=== PATIENT | male | born 1980 | race Caucasian/White ===

== ENCOUNTER 2016-07-05 19:45 | Emergency (ER) | payer OTHER ==
[~2016-07-05] VITALS: Ht 180.3 cm; Wt 136.1 kg
--- NOTE | ~2016-07-05 | EKG ---
[place], [place] ELECTROCARDIOGRAM REPORT NAME: RAQUEL REDD UNIT #: [id number] ROOM: DOCTOR: BASIL WEBER MD BIRTHDATE: [birth year] DOS: 07/05/2016 TIME: 2027. Normal sinus rhythm at 90 beats per minute. The tracing is normal. No previous tracing is available for comparison. BASIL WEBER MD CM:EKGRPT:ELECTROCARDIOGRAM REPORT 1232 1519 BASIL WEBER MD
[~2016-07-05 19:45] MED LIST: ANAPROX DS550 MG PO; ANUSOL-HC25 MG R; ASPIRIN81 M1; ATIVAN0.5 MG PO; BENADRYL25 M2 PO; CLEOCIN150 MG PO; CYCLOBENZAPRINE10 MG PO; DARVOCET N 1001 TAB PO; FLEXERIL10 MG PO; HYDROCODONE BIT1 T11 PO; IBU-8800 MG PO; LEVOFLOXACIN500 MG PO; Motrin,Rufen800 MG PO; NAPROSYN500 MG PO; NAPROXEN220 MG PO; NAPROXEN500 MG PO; NEURONTIN300 MG PO; Orphenadrine C100 MG PO; PERCOCET 325 MG1 TA2 PO; PREDNICOT20 MG PO; PREDNISONE10 MG PO; PREDNISONE20 M1 PO; PREVACID15 M1 PO; PRILOSEC20 M2 PO; QSYMIA 15 MG-91 EACH PO; ROBITUSSIN DM 105 ML PO; SUPHEDRINE PE PO; TRAMADOL HCL50 MG PO; VENTOLIN H0.09 MG/AC INH; VICODIN 5/500 505 MG PO; VICODIN ES 7501 TAB PO; ZANTAC 150150 MG PO; [UNRECOGNIZED DRUG - OTHER] PO
[2016-07-05 20:34] LABS: BASO % 0.5 % (0.0-1.0); EOS # 0.2 10*3/uL (0.0-0.4); EOS % 2.9 % (1.0-4.0); HEMATOCRIT 43.4 % (42.0-52.0); HEMOGLOBIN 14.6 g/dl (14.0-18.0); LYMPH % 14.2 % (27.0-41.0); MEAN CELL VOLUME 83.9 fl (80.0-94.0); MEAN CORPUSCULAR HGB 28.2 pg (27.0-31.0); MEAN CORPUSCULAR HGB CONC 33.6 g/dl (33.0-37.0); MEAN PLATELET VOLUME 10.4 fl (9.6-12.3); MONO # 0.6 10*3/uL (0.1-1.0); MONO % 8.5 % (3.0-9.0); NEUT # 5.4 10*3/uL (2.3-7.9); NEUT % 73.5 % (47.0-73.0); PLATELET COUNT AUTOMATED 280 10*3/uL (130-400); RED BLOOD COUNT 5.17 10*6/uL (4.50-5.90); RED CELL DISTRI WIDTH 13.4 % (0-14.5); WHITE BLOOD COUNT 7.3 10*3/uL (4.8-10.8)
[2016-07-05 20:50] LABS: ALBUMIN 3.6 gm/dl (3.1-4.5); ALKALINE PHOSPHATASE 80 U/L (45-117); BILIRUBIN, TOTAL 0.3 mg/dl (0.2-1.0); BUN 17 mg/dl (7-24); CARBON DIOXIDE 26 mmol/L (21-32); CHLORIDE 107 mmol/L (98-107); CPK 117 U/L (39-308); EST GLOM FILT AFRICAN AMERICAN > 60 ml/min; GLUCOSE 134 mg/dL (65-99); LDH 221 U/L (87-241); MAGNESIUM 2.2 mg/dL (1.5-2.1); POTASSIUM 3.7 mmol/L (3.5-5.1); SGOT/AST 30 IU/L (3-35); SGPT/ALT 39 U/L (12-78); SODIUM 146 mmol/L (136-145); TOTAL PROTEIN 6.5 gm/dL (6.4-8.2)
[2016-07-05 20:51] LABS: CKMB 1.5 ng/ml (0.5-3.6)
[2016-07-05 21:02] LABS: TROPONIN I < 0.015 ng/ml (<0.045)
== END 2016-07-05 23:36 | disposition home or self-care (01) ==
LOC: ED 19:45
PROVIDERS: Physician Assistant
DX: B34.9 Viral infection, unspecified (principal); R19.7 Diarrhea, unspecified; Z88.0 Allergy status to penicillin

== ENCOUNTER 2016-10-16 23:09 | Emergency (ER) | payer OTHER ==
[~2016-10-16] VITALS: Ht 180.3 cm; Wt 137.9 kg
[2016-10-16] MEDS ORDERED: PREDNISONE10 MG PO (23:23)
== END 2016-10-17 00:24 | disposition home or self-care (01) ==
LOC: ED 23:09
DX: L23.7 Allergic contact dermatitis due to plants, except food (principal); Z88.0 Allergy status to penicillin; Z87.891 Personal history of nicotine dependence

== ENCOUNTER 2017-09-28 21:23 | Emergency (ER) | payer OTHER ==
[~2017-09-28] VITALS: Ht 180.3 cm; Wt 154.2 kg
[2017-11-13] MEDS ORDERED: PEPCID20 MG PO (12:04)
[2017-11-13] MEDS ORDERED: ACTIGALL300 MG PO (12:04)
== END 2017-09-28 22:17 | disposition home or self-care (01) ==
LOC: ED 21:23
DX: L23.7 Allergic contact dermatitis due to plants, except food (principal); F17.200 Nicotine dependence, unspecified, uncomplicated; Z98.890 Other specified postprocedural states; Z88.0 Allergy status to penicillin

== ENCOUNTER 2018-02-06 09:28 | Emergency (ER) | payer OTHER ==
[~2018-02-06] VITALS: Ht 180.3 cm; Wt 121.1 kg
[~2018-02-06 09:28] MED LIST changes: +ACTIGALL300 MG PO; +CLINDAMYCIN150 MG PO; +PEPCID20 MG PO
== END 2018-02-06 11:26 | disposition home or self-care (01) ==
LOC: ED 09:28
DX: R20.2 Paresthesia of skin (principal); R20.0 Anesthesia of skin; M79.652 Pain in left thigh; K21.9 Gastro-esophageal reflux disease without esophagitis; E66.1 Drug-induced obesity; Z88.0 Allergy status to penicillin

== ENCOUNTER 2018-07-23 13:04 | Emergency (ER) | payer OTHER ==
[~2018-07-23] VITALS: Ht 175.2 cm; Wt 99.8 kg
== END 2018-07-23 15:05 | disposition home or self-care (01) ==
LOC: ED 13:04
DX: S20.212A Contusion of left front wall of thorax, initial encounter (principal); Z88.0 Allergy status to penicillin; W22.8XXA Striking against or struck by other objects, initial encounter; Y93.89 Activity, other specified; Y92.89 Other specified places as the place of occurrence of the external cause; Y99.8 Other external cause status

== ENCOUNTER 2018-11-26 21:11 | Inpatient (IN) | payer OTHER ==
[~2018-11-26] VITALS: Ht 180.3 cm; Wt 97.2 kg
[~2018-11-26 21:11] MED LIST changes: -ACTIGALL300 MG PO; -PEPCID20 MG PO
[2018-11-26 21:25] VITALS: BP 113/74
[2018-11-26 21:27] LABS: BASO % 0.6 % (0.0-1.0); EOS # 0.1 10*3/uL (0.0-0.4); EOS % 0.8 % (1.0-4.0); LYMPH % 13.7 % (27.0-41.0); MEAN CELL VOLUME 88.7 fl (80.0-94.0); MEAN CORPUSCULAR HGB 30.2 pg (27.0-31.0); MEAN CORPUSCULAR HGB CONC 34.1 g/dl (33.0-37.0); MEAN PLATELET VOLUME 10.9 fl (9.6-12.3); MONO # 0.4 10*3/uL (0.1-1.0); MONO % 5.6 % (3.0-9.0); NEUT # 5.7 10*3/uL (2.3-7.9); PLATELET COUNT AUTOMATED 306 10*3/uL (130-400); RED BLOOD COUNT 4.96 10*6/uL (4.50-5.90); RED CELL DISTRI WIDTH 13.3 % (0-14.5); WHITE BLOOD COUNT 7.2 10*3/uL (4.8-10.8)
[2018-11-26 21:46] LABS: ACT PARTIAL THROMBO TIME 26.3 SECONDS (20.0-32.1); ALBUMIN 3.7 gm/dl (3.1-4.5); ALKALINE PHOSPHATASE 86 U/L (45-117); BUN 12 mg/dl (7-24); CHLORIDE 108 mmol/L (98-107); CREATININE 1.03 mg/dL (0.70-1.30); POTASSIUM 3.6 mmol/L (3.5-5.1); SGOT/AST 23 IU/L (3-35); SGPT/ALT 29 U/L (12-78); SODIUM 142 mmol/L (136-145); TOTAL PROTEIN 6.4 gm/dL (6.4-8.2)
[2018-11-26 21:50] LABS: TROPONIN I < 0.015 ng/ml (<0.045)
[2018-11-27] MEDS ORDERED: ACTIGALL300 MG PO (00:29)
[2018-11-27] MEDS ORDERED: PEPCID20 MG PO (00:29)
[2018-11-27 03:20] LABS: BASO % 0.6 % (0.0-1.0); EOS # 0.1 10*3/uL (0.0-0.4); HEMATOCRIT 40.9 % (42.0-52.0); HEMOGLOBIN 13.9 g/dl (14.0-18.0); LYMPH # 1.2 10*3/uL (1.3-4.4); LYMPH % 22.7 % (27.0-41.0); MEAN CELL VOLUME 88.1 fl (80.0-94.0); MONO # 0.6 10*3/uL (0.1-1.0); MONO % 11.1 % (3.0-9.0); NEUT # 3.2 10*3/uL (2.3-7.9); NEUT % 63.6 % (47.0-73.0); PLATELET COUNT AUTOMATED 268 10*3/uL (130-400); RED BLOOD COUNT 4.64 10*6/uL (4.50-5.90); RED CELL DISTRI WIDTH 13.4 % (0-14.5); WHITE BLOOD COUNT 5.1 10*3/uL (4.8-10.8)
[2018-11-27 03:37] LABS: ALBUMIN 3.2 gm/dl (3.1-4.5); BUN 13 mg/dl (7-24); CHLORIDE 110 mmol/L (98-107); CHOLESTEROL 107 mg/dL (<200); CREATININE 0.77 mg/dL (0.70-1.30); PHOSPHOROUS 4.6 mg/dL (2.5-4.9); POTASSIUM 3.9 mmol/L (3.5-5.1); SGOT/AST 16 IU/L (3-35); SGPT/ALT 26 U/L (12-78); SODIUM 144 mmol/L (136-145); TRIGLYCERIDES 98 mg/dl (<150); VLDL CHOLESTEROL 20 mg/dL (6-40)
[2018-11-27 03:38] LABS: ALKALINE PHOSPHATASE 81 U/L (45-117); TOTAL PROTEIN 5.7 gm/dL (6.4-8.2)
[2018-11-27 03:42] LABS: FREE T4 0.97 ng/dl (0.76-1.46); HDL CHOLESTEROL 43 mg/dl (40-60); LDL CHOLESTEROL 44 mg/dL (9-159)
[2018-11-27 07:19] LABS: VITAMIN D, 25-HYDROXY 24.5 ng/mL (30-100)
[2018-11-27 08:00] VITALS: BP 108/54
[2018-11-27 13:00] VITALS: BP 90/68
== END 2018-11-27 19:25 | disposition home or self-care (01) | DRG 392 ==
LOC: ED 21:11 → 4E 22:43 → EDHOLD 22:43 → 4E 22:43
PROVIDERS: Emergency Medicine; Internal Medicine; ADMIT Internal Medicine
PROC: 4A02XM4 Measurement of Cardiac Total Activity, External Approach (ICD-10-PCS; principal; 2018-11-27)
PROC: 3E073KZ Introduction of Other Diagnostic Substance into Coronary Artery, Percutaneous Approach (ICD-10-PCS; 2018-11-27)
DX: K21.9 Gastro-esophageal reflux disease without esophagitis (principal); E87.1 Hypo-osmolality and hyponatremia; E66.01 Morbid (severe) obesity due to excess calories; R00.1 Bradycardia, unspecified; L23.9 Allergic contact dermatitis, unspecified cause; E87.8 Other disorders of electrolyte and fluid balance, not elsewhere classified; R73.9 Hyperglycemia, unspecified; E83.41 Hypermagnesemia; Z87.891 Personal history of nicotine dependence; Z88.0 Allergy status to penicillin; Z79.899 Other long term (current) drug therapy; Z95.1 Presence of aortocoronary bypass graft; Z82.49 Family history of ischemic heart disease and other diseases of the circulatory system; Z82.3 Family history of stroke; Z80.8 Family history of malignant neoplasm of other organs or systems; Z83.79 Family history of other diseases of the digestive system; Z98.84 Bariatric surgery status; Z68.29 Body mass index [BMI] 29.0-29.9, adult

== ENCOUNTER → 2018-12-06 | Outpatient (CLI) | payer OTHER ==
[~2018-12-06] MED LIST changes: +ACTIGALL300 MG PO; +PEPCID20 MG PO
== END | disposition home or self-care (01) ==
LOC: CARD 09:30
DX: R55 Syncope and collapse (principal)

== ENCOUNTER 2018-12-10 15:16 | Inpatient (IN) | payer OTHER ==
[~2018-12-10] VITALS: Ht 180.3 cm; Wt 96.9 kg
--- NOTE | ~2018-12-10 | EKG ---
[place], [place] ELECTROCARDIOGRAM REPORT NAME: RAQUEL REDD UNIT #: [id number] ROOM: 425 DOCTOR: SHELLEY DRAFT REPORT BIRTHDATE: [birth year] [facility] Test Date: 2018-12-10 Test Time: 21:51:48 Pat Name: RAQUEL REDD Department: Room: 425 1 Gender: M Lead Massage Therapist: Chapin Coates : 1980 Requested By: LO DANIELS Order Number: [id number] Reading MD: Adrian Briscoe MD Measurements Intervals [place] Rate: 42 P: 2 [place]: 161 QRS: 17 QRSD: 93 T: 14 QT: 441 QTc: 369 Interpretive Statements Sinus bradycardia Baseline wander in lead(s) V1 Compared to ECG 11/27/2018 02:54:09 No significant changes Electronically Signed On 12-12-2018 16:07:03 PDT by Adrian Briscoe MD CM:EKGRPT:ELECTROCARDIOGRAM REPORT 1607 LO ROSA DRAFT REPORT LO DANIELS
--- NOTE | ~2018-12-10 | PR ---
[place], [place] PROGRESS NOTE NAME: RAQUEL REDD [facility] #: [id number] UNIT #: [id number] ROOM: 425 DOCTOR: BASIL WEBER MD BIRTHDATE: [birth year] DOS: 12/13/2018 He had a dual-chamber pacemaker implanted from right subclavian approach. He has local pain, but no breathing difficulty or palpitations. PHYSICAL EXAMINATION: GENERAL: Reveals a patient who is afebrile. VITAL SIGNS: Pulse is 60, blood pressure 126/74. NECK: Normal JVP. CARDIOVASCULAR: There is no precordial rub. LUNGS: Clear. EXTREMITIES: No edema in lower extremities. The monitor shows atrial pacing and ventricular sensing. The pacemaker site looks fine. There is no effusion. He has abdominal wound. RECOMMENDATIONS: The patient can be discharged home today with a followup with me in a couple of weeks. He can take a shower and should only dab over the pacemaker site. He should be sent home on ciprofloxacin 500 b.i.d. for 3 days. BASIL WEBER MD CM:PNTRANS 0708 1428 BASIL WEBER MD 12/13/18 1424 interface
--- NOTE | ~2018-12-10 | EKG ---
[place], [place] ELECTROCARDIOGRAM REPORT NAME: RAQUEL REDD UNIT #: [id number] ROOM: 425 DOCTOR: SHELLEY DRAFT REPORT BIRTHDATE: [birth year] [facility] Test Date: 2018-12-10 Test Time: 19:24:38 Pat Name: RAQUEL REDD Department: Room: 425 1 Gender: M Area Field Manager: : 1980 Requested By: LO DANIELS Order Number: [id number] Reading MD: Adrian Briscoe MD Measurements Intervals [place] Rate: 52 P: 20 [place]: 164 QRS: 15 QRSD: 94 T: 16 QT: 416 QTc: 387 Interpretive Statements Sinus rhythm Compared to ECG 11/27/2018 02:54:09 Sinus bradycardia no longer present Electronically Signed On 12-12-2018 16:06:50 PDT by Adrian Briscoe MD CM:EKGRPT:ELECTROCARDIOGRAM REPORT 23 1606 LO ROSA DRAFT REPORT LO DANIELS
--- NOTE | ~2018-12-10 | EKG ---
[place], [place] ELECTROCARDIOGRAM REPORT NAME: RAQUEL REDD UNIT #: [id number] ROOM: 425 DOCTOR: SHELLEY DRAFT REPORT BIRTHDATE: [birth year] [facility] Test Date: 2018-12-10 Test Time: 17:50:45 Pat Name: RAQUEL REDD Department: Room: 425 1 Gender: M Procurement Forester: : 1980 Requested By: LO DANIELS Order Number: [id number] Reading MD: Adrian Briscoe MD Measurements Intervals [place] Rate: 37 P: 4 CT: 163 QRS: 21 QRSD: 90 T: 19 QT: 460 QTc: 361 Interpretive Statements Sinus bradycardia Compared to ECG 11/27/2018 02:54:09 No significant changes Electronically Signed On 12-12-2018 16:06:41 PDT by Adrian Briscoe MD CM:EKGRPT:ELECTROCARDIOGRAM REPORT 1750 1606 LO ROSA DRAFT REPORT LO DANIELS
--- NOTE | ~2018-12-10 | EKG ---
[place], [place] ELECTROCARDIOGRAM REPORT NAME: RAQUEL REDD UNIT #: [id number] ROOM: 425 DOCTOR: SHELLEY DRAFT REPORT BIRTHDATE: [birth year] [facility] Test Date: 2018-12-12 Test Time: 09:51:07 Pat Name: RAQUEL REDD Department: Room: 425 1 Gender: M Aircraft Engine Specialist: : 1980 Requested By: ADRIAN BRISCOE Order Number: [id number] Reading MD: Adrian Briscoe MD Measurements Intervals [place] Rate: 60 P: 42 [place]: 234 QRS: -45 QRSD: 98 T: 50 QT: 400 QTc: 400 Interpretive Statements Atrial-ventricular dual-paced rhythm No further analysis attempted due to paced rhythm Compared to ECG 11/27/2018 02:54:09 Sinus bradycardia no longer present Electronically Signed On 12-12-2018 16:07:40 PDT by Adrian Briscoe MD CM:EKGRPT:ELECTROCARDIOGRAM REPORT 0951 1607 ADRIAN ROSA DRAFT REPORT ADRIAN BRISCOE MD
--- NOTE | ~2018-12-10 | CON ---
[place], [place] REPORT OF CONSULTATION [id number] UNIT #: [id number] ROOM: 425 DOCTOR: BASIL WEBER MD BIRTHDATE: [birth year] DOS: 12/11/2018 HISTORY OF PRESENT ILLNESS: This is a 37-year-old -[place] man with a history of chronic bradycardia. He had a Holter monitor done in 2016, which demonstrated slowest heart rate of 40 beats per minute, highest 141 beats per minute. He has not had essential hypertension, diabetes, heart failure, any COPD, emphysema, cancer, kidney problem, liver problem, but has GERD. He has never had a stroke. There is no family history of sudden or premature coronary artery disease. He smokes cigarettes, but does not use alcoholic beverages. He is a truck loader and unloader. PAST MEDICAL HISTORY: As mentioned above. PAST SURGICAL HISTORY: Includes carpal tunnel decompression surgery and gastric bypass surgery in the remote past. He was admitted to the hospital because of severe bradycardia on Holter monitor. He has had 6 episodes of syncope in about 5 months, often happen when he is standing and happens without any warning whatsoever. He drops like a weight. The episode occurred now, resulted in falling forward and he has sore chest from that. When he wakes up, he is sweating. He is sometimes mildly nauseated, but no disorientation or amnesia. There is no urinary incontinence or fecal incontinence. When he is physically active, he does not have any particular symptoms, no chest pain, breathing difficulty or any lightheadedness. REVIEW OF SYSTEMS: No GI symptoms. He does not have any headaches, localized weakness or dysesthesia of the extremities. No urinary symptoms. No blood in the stools. MEDICATIONS: None. PHYSICAL EXAMINATION: GENERAL: Reveals a patient who is healthy looking. He is alert, oriented, comfortable. He is fairly muscular. There is no cyanosis or jaundice. There is no thyromegaly or finger clubbing. VITAL SIGNS: Pulse is 40 and regular, blood pressure 114/56. NECK: JVP is normal. AJR is negative. There is no carotid. CARDIAC: No cardiomegaly is present. Auscultation reveals normal heart sounds. No murmurs or rubs are present. Rate is about 36 beats per minute. EXTREMITIES: Good pedal pulses and no edema in lower extremities. RESPIRATORY: He has no is tachypnea. Percussion note is normal. Auscultation reveals good breath sounds without any adventitious sounds. There is mild chest tenderness anteriorly. ABDOMEN: It is normal to examination. LABORATORY DATA: ECG has shown sinus bradycardia with heart rate of 37 beats per minute and monitor during the night showed slowest heart rate at 33 beats per minute. [place], [place] REPORT OF CONSULTATION NAME: RAQUEL REDD UNIT #: [id number] ROOM: 425 DOCTOR: BASIL WEBER MD BIRTHDATE: [birth year] IMPRESSION: This patient has had recurrent syncope, has documented severe sinus bradycardia. I believe this patient has sinoatrial node dysfunction, which has led to recurrent syncope. This is obviously serious because he had a truck loader and unloader. He had an echocardiogram, which was essentially normal. RECOMMENDATIONS: This patient needs a dual chamber pacemaker, which I discussed with him and pointed out the risks and the benefits including infection, bleeding, pneumothorax, pericardial tamponade. He understands and would like to proceed and I have planned to do the procedure in the OR tomorrow morning. I thank you for this consult. BASIL WEBER MD CM:CONSTR:REPORT OF CONSULTATION 0640 12/11/18 2108 interface
--- NOTE | ~2018-12-10 | PR ---
[place], [place] PROGRESS NOTE [id number] UNIT #: [id number] ROOM: 425 DOCTOR: BASIL WEBER MD BIRTHDATE: [birth year] DOS: 12/12/2018 The patient had a dual chamber pacemaker implanted. This was done at the right subclavian site and the procedure went uneventfully. The patient can be discharged home tomorrow after a chest x-ray to look for any pneumothorax and make sure leads are in the right place. BASIL WEBER MD CM:PNTRANS 1821 0017 BASIL WEBER MD 12/31/18 0800 interface
--- NOTE | ~2018-12-10 | PROC NOTE ---
[place], [place] PROCEDURE NOTE NAME: RAQUEL REDD [facility] #: [id number] UNIT #: [id number] ROOM: 425 DOCTOR: BASIL WEBER MD BIRTHDATE: [birth year] DOS: 12/12/2018 PROCEDURE NOTE PROCEDURE: Implantation of dual chamber pacemaker. INDICATIONS: Severe bradycardia with chronic fatigue and also recurrent syncope. Slowest heart rate documented was 31 beats per minute. POSTPROCEDURE DIAGNOSES: Severe bradycardia with chronic fatigue and also recurrent syncope. Slowest heart rate documented was 31 beats per minute. SPECIMENS: None. COMPLICATIONS: None. BLOOD LOSS: None. PROGRAM CLINICIAN: None. NARRATIVE: The procedure was performed in the OR. Sedation was provided by Anesthesiology service. Right subclavian was prepped and draped for a sterile approach and 1% lidocaine was infiltrated in the subclavian area and an 18-gauge Cook needle was used to cannulate the subclavian vein, which was obtained on first attempt. A J-guidewire was introduced into the right atrium. The Cook needle was removed and a 4 cm incision was made below and parallel to the right clavicle traversing the entry side of the J guidewire. Blunt dissection was performed inferiorly and laterally and it was packed with gauze for hemostasis. A 9-Nepalese peel-away sheath was then introduced into the right subclavian vein followed by introduction of a tight ventricular lead. A curved stylet was used to advance this lead into the pulmonary artery. A straight stylet then was introduced to guide the tip of the lead into the right ventricular apex, which was accomplished without any difficulty. Measured data was satisfactory. A 7-Nepalese peel-away sheath was introduced into the subclavian vein over the J-guidewire that was left behind and wire was taken out and a screw in atrial lead was introduced into the right atrium under fluoroscopy. A J curved stylet was then introduced which negotiated the tip into the right atrial appendage, which was screwed in place and measured data was excellent. The length of the leads were optimized and sleeves on the leads were advanced to the entry side and were tied in place with 3-0 Ethibond and same material was used to suture the leads to the floor of the pocket. The gauze was removed and the pocket was irrigated. The leads were then attached to the pacemaker generator, which was placed in the pocket with the leads located posteriorly. One 3-0 Ethibond suture was used to immobilize the generator. Subcutaneous tissue was closed with 3-0 chromic catgut in an interrupted fashion. This led to excellent skin apposition. Dermabond was applied followed by application of a pressure dressing. The pacemaker generator was by [employer], model W3RD01, serial #[id number]. The [place], [place] PROCEDURE NOTE NAME: RAQUEL REDD [place] UNIT #: [id number] ROOM: [facility] DOCTOR: BASIL WEBER MD BIRTHDATE: [birth year] right atrial lead, model was 5076-52, serial # [id number]. The right ventricular lead, model was 244401 and serial #[id number]. BASIL WEBER MD CM:PROCNOTE:PROCEDURE NOTE 1836 1858 JENIFER WEBER MD
--- NOTE | 2018-12-10 15:25 | NUR ---
A 37, admitted to , under the services of JENIFER Saleem MD with a diagnosis of SYNCOPE AND COLLAPSE, BRADYCARDIA. Chief complaint is DIRECT ADMIT. Patient arrived via ambulatory from CT. Monitor applied. Initial assessment completed. Vital signs taken and recorded. JENIFER SALEEM MD notified of admission to the unit. Orders received. See assessment for past medical history, medications and allergies. Patient and/or family oriented to unit. [facility] visitation policy reviewed. Clothing/patient valuable form completed. RENE FRAUSTO
--- NOTE | 2018-12-10 15:54 | NUR ---
PT DENIES TAKING ANY MEDS AT HOME
[2018-12-10 16:00] VITALS: BP 111/58
[2018-12-10 16:33] LABS: BASO % 0.5 % (0.0-1.0); EOS # 0.1 10*3/uL (0.0-0.4); EOS % 1.7 % (1.0-4.0); HEMATOCRIT 42.6 % (42.0-52.0); LYMPH # 1.1 10*3/uL (1.3-4.4); LYMPH % 16.5 % (27.0-41.0); MEAN CELL VOLUME 91.4 fl (80.0-94.0); MEAN CORPUSCULAR HGB CONC 32.9 g/dl (33.0-37.0); MEAN PLATELET VOLUME 10.8 fl (9.6-12.3); MONO # 0.6 10*3/uL (0.1-1.0); MONO % 9.6 % (3.0-9.0); NEUT # 4.6 10*3/uL (2.3-7.9); NEUT % 71.5 % (47.0-73.0); PLATELET COUNT AUTOMATED 303 10*3/uL (130-400); RED BLOOD COUNT 4.66 10*6/uL (4.50-5.90); RED CELL DISTRI WIDTH 13.5 % (0-14.5); WHITE BLOOD COUNT 6.5 10*3/uL (4.8-10.8)
[2018-12-10 16:48] LABS: ALBUMIN 3.3 gm/dl (3.1-4.5); ALKALINE PHOSPHATASE 74 U/L (45-117); BUN 12 mg/dl (7-24); CHLORIDE 109 mmol/L (98-107); CREATININE 0.72 mg/dL (0.70-1.30); PHOSPHOROUS 3.6 mg/dL (2.5-4.9); POTASSIUM 4.1 mmol/L (3.5-5.1); SGOT/AST 14 IU/L (3-35); SGPT/ALT 24 U/L (12-78); SODIUM 144 mmol/L (136-145); TOTAL PROTEIN 5.7 gm/dL (6.4-8.2)
--- NOTE | 2018-12-10 17:37 | NUR ---
DR. WEBER AWARE OF CONSULT NO NEW ORDERS.
--- NOTE | 2018-12-10 19:13 | NUR ---
ASSUMED CARE OF PT AT THIS TIME. PT AWAKE IN BED. HR 60S PER CM. DENIES ANY NEEDS CURRENTLY. WILL MONITOR. CALL LIGHT IN REACH.
[2018-12-10 20:00] VITALS: BP 109/54
--- NOTE | 2018-12-10 20:41 | NUR ---
RN IN ROOM, FOUND PT DISCONNECTED FROM IVF. PATIENT SUPPOSED TO HAVE 1 LITER. APPROXIMATELY 600 REMAINING IN CURRENT BAG. PATIENT REFUSING REMAINING AMOUNT. RN EDUCATED PATIENT ON FLUID PURPOSE. PATIENT STATES HE STAYS "VERY WELL HYDRATED" AND DOES NOT WANT REMAINDER OF FLUIDS ORDERED AT THIS TIME. WILL MONITOR.
[2018-12-11] VITALS: BP 114/56
--- NOTE | 2018-12-11 01:45 | NUR ---
PT DENIES ANY NEEDS AT THIS TIME. WILL MONITOR. CALL LIGHT LEFT IN REACH.
--- NOTE | 2018-12-11 06:11 | NUR ---
HERE TO SEE PATIENT. DISCUSSED EVENTS LEADING UP TO THIS ADMISSION, INCLUDING SYNCOPAL EPISODE ON SUNDAY PER PT. ALSO AWARE OF LOWEST HR THROUGHOUT NIGHT 33 PER CM.
--- NOTE | 2018-12-11 06:29 | NUR ---
SPOKE WITH THIS RN AFTER SEEING PATIENT. PATIENT TO HAVE DUAL-CHAMBER PACEMAKER PLACED HERE TOMORROW (12/12/18) @ 1759. PREFERS TO USE [employer] IF POSSIBLE. SPOKE TO OANH IN OR. DISCUSSED GUS'S PREFERENCES. STATES SURGERY DIRECTOR, PATRICA, WILL HAVE TO CHECK IF [employer] CAN BE USED.
--- NOTE | 2018-12-11 06:45 | NUR ---
STATES TO PUT IN PRE-OP ORDERSET FOR CARDIAC PACEMAKER SURGERY TOMORROW.
--- NOTE | 2018-12-11 07:22 | NUR ---
PT C/O "ITCHING FEET." STATES HE USES OTC ATHLETES FOOT SPRAY & REQUESTING SOME HERE. NOTIFIED & NEW ORDER RECEIVED FOR ZEASORB POWDER. PT ALSO REQUESTING TO TAKE MONITOR OFF TO SHOWER. AWARE OF PATIENT'S HR 30S AND PT TO HAVE PACEMAKER PLACED W/ TOMORROW MORNING. OKAY TO REMOVE MONITOR TO SHOWER PER .
[2018-12-11 08:00] VITALS: BP 120/64
--- NOTE | 2018-12-11 09:00 | NUR ---
Branch Service Representative in to talk to patient. Patient states lives with his girlfriend as his house is being renovated. There are 15 steps in the home. Physician: Dr. Miky Banerjee [facility]: [facility] Home health services: none Patient's level of ADLs: INDEPENDENT Patient has working utilities: yes DME: none Follow-up physician's appointment after d/c: he prefers to make his own follow up appt after discharge Does patient want to access PORTAL?: no Discharge plan discussed with patient. He lives with his girlfriend as his home is being renovated. He is independent in his ADLs and ambulation. Discussed home health care services and he denies any home needs at this time. When medically stable he will be discharged to home. His girlfriend will provide transportation on discharge. Plan is for patient to have a pacemaker inserted tomorrow morning. FIONA BRIDGES
--- NOTE | 2018-12-11 10:00 | NUR ---
PATIENT SHOWERED AND NOW IS REFUSING TO PUT HEART MONITOR ON AND HIS IV CAME OUT ACCIDENTLY. DR. DANIELS AWARE AND IS OK WITH IV STAYING OUT BUT NEEDS TO WEAR HEART MONITOR. PATIENT WANTS A BREAK AND SAID HE WILL LET ME KNOW WHEN COMPANY LEAVES AND THEN I CAN PUT ON HEART MONITOR.
--- NOTE | 2018-12-11 11:37 | NUR ---
GEOFFT BACK ON HEART MONITOR.
--- NOTE | 2018-12-11 11:40 | NUR ---
SPOKE TO OANH IN OR AND SHE WILL NOTIFY DR. WEBER OF PACER PREFERENCE AVAILABILITY.
[2018-12-11 12:00] VITALS: BP 116/64
[2018-12-11 16:00] VITALS: BP 108/59
--- NOTE | 2018-12-11 19:42 | NUR ---
PATIENT AWAKE, SITTING UP IN BED, EATING DINNER AT THIS TIME. SHIFT ASSESSMENT COMPLETED, SEE CHART. PATIENT HEARTRATE CURRENTLY 40'S. PATIENT DENIES ANY COMPLAINTS AT THIS TIME, DENIES DIZZINESS, OR SHORTNESS OF BREATH. DENIES ANY NEED CURRENTLY. RN WILL CONTINUE TO MONITOR THIS PATIENT
[2018-12-11 20:00] VITALS: BP 111/55
[2018-12-12] VITALS (9 sets, daily range): BP systolic 105–137; BP diastolic 37–79
--- NOTE | 2018-12-12 01:20 | NUR ---
EKG FROM GUS'S PRE-OP ORDERSET CANCELLED DIRECTIONS SAY TO DO EKG IF NOT DONE IN ONE WEEK. PT HAD EKG X3 ON ADMISSION.
[2018-12-12 05:49] LABS: BASO % 0.5 % (0.0-1.0); EOS # 0.1 10*3/uL (0.0-0.4); EOS % 2.3 % (1.0-4.0); HEMATOCRIT 42.7 % (42.0-52.0); HEMOGLOBIN 13.9 g/dl (14.0-18.0); LYMPH # 1.4 10*3/uL (1.3-4.4); LYMPH % 21.9 % (27.0-41.0); MEAN CELL VOLUME 92.6 fl (80.0-94.0); MEAN CORPUSCULAR HGB 30.2 pg (27.0-31.0); MEAN CORPUSCULAR HGB CONC 32.6 g/dl (33.0-37.0); MONO # 0.6 10*3/uL (0.1-1.0); MONO % 9.3 % (3.0-9.0); NEUT # 4.1 10*3/uL (2.3-7.9); NEUT % 65.7 % (47.0-73.0); PLATELET COUNT AUTOMATED 266 10*3/uL (130-400); RED BLOOD COUNT 4.61 10*6/uL (4.50-5.90); RED CELL DISTRI WIDTH 13.4 % (0-14.5); WHITE BLOOD COUNT 6.2 10*3/uL (4.8-10.8)
--- NOTE | 2018-12-12 05:58 | NUR ---
PT TAKEN OFF MEDICAL ASSISTANT INTERNAL MEDICINE TO SHOWER BEFORE SURGERY. MEDICAL ASSISTANT INTERNAL MEDICINE REAPPLIED. HR 39 AT THIS TIME.
[2018-12-12 06:02] LABS: BUN 12 mg/dl (7-24); CHLORIDE 105 mmol/L (98-107); CREATININE 0.82 mg/dL (0.70-1.30); POTASSIUM 3.9 mmol/L (3.5-5.1); SODIUM 142 mmol/L (136-145)
[2018-12-12 06:04] LABS: ACT PARTIAL THROMBO TIME 26.8 SECONDS (20.0-32.1)
--- NOTE | 2018-12-12 06:35 | NUR ---
PT TAKEN OFF FLOOR FOR SURGERY. AWARE THAT 2 RNs UNABLE TO GET IV ACCESS ON PT AT THIS TIME. STATES THEY WILL START IV IN SURGERY.
--- NOTE | 2018-12-12 09:00 | NUR ---
Home Appliance Technician in to see patient. He is currently not in his room. Will follow up at a later time.
--- NOTE | 2018-12-12 10:13 | NUR ---
PATIENT BACK IN ROOM VSS, HR 64. COMPLAINT OF R SHOULDER CHEST PAIN.
--- NOTE | 2018-12-12 10:56 | NUR ---
MEDICATED WITH NORCO PER ORDER FOR C/O R SHOULDER CHEST PAIN FROM INCISION OF PACER.
--- NOTE | 2018-12-12 11:38 | NUR ---
IVAN HELPED A LITTLE. MEDICATED WITH PRN MORPHINE PER ORDER.
--- NOTE | 2018-12-12 15:00 | NUR ---
Foreign Language Professor in to see patient. No new needs or request at this time. He denies any home needs. When medically stable he will be discharged to home.
--- NOTE | 2018-12-12 15:43 | NUR ---
MEDICATED WITH MORPHINE PER ORDER AND REQUESTFOR PACER SITE INCISION.
--- NOTE | 2018-12-12 18:47 | NUR ---
PT MEDICATED WITH PO NORCO AT THIS TIME PER ORDER FOR COMPLAINTS OF INCISIONAL PAIN TO CHEST 09/25, WILL MONITOR.
--- NOTE | 2018-12-12 20:15 | NUR ---
193 RESTING IN BED WATCHING TV. EARLIER PAIN MED EFFECTIVE. NO DISTRESS NOTED. SLING OFF AT PRESENT. HEP LCK INTACT. DRSG D/I TO R CHEST WALL. NO DRNG NOTED.
--- NOTE | 2018-12-12 20:25 | NUR ---
NOW HAVING PAIN POST PACER SITE RSC. MEDICATED WITH MORPHINE 2MG IV FOR THIS. WILL MONITOR.
--- NOTE | 2018-12-12 21:13 | NUR ---
EARLIER PAIN MED EFFECTIVE.
--- NOTE | 2018-12-12 22:00 | NUR ---
NO FURTHER C/O'S. VOICED. CONDITION GUARDED.
--- NOTE | 2018-12-12 23:00 | NUR ---
2240 PT LIGHT ON,. STATES "MYHEART MONITOR IS SAYING MY HEART RATE IS 1OO AND I FELT PALPITATIONS." MONITOR SHOWS A HR OF 60. HOME HEALTH OCCUPATIONAL THERAPIST CALLED AND PT HEART RATE HAS BEEN 60.NO ELEVATION.
[2018-12-13] VITALS: BP 126/74
--- NOTE | 2018-12-13 05:33 | NUR ---
PATIENT MEDICATED WITH MORPHINE PER REQUEST. RATES PAIN 10/10 WHERE PACEMAKER WAS PLACED. WILL CHECK EFFECTIVENESS.
[2018-12-13 08:00] VITALS: BP 114/68
[2018-12-13] MEDS ORDERED: CIPRO500 MG PO (10:41)
--- NOTE | 2018-12-13 12:20 | NUR ---
Discharge instructions reviewed with patient/family. Patient receptive and verbalizes understanding. Follow-up care arranged. Written instructions given to patient/family. IV site and vertical roll operator removed. YUMIKO SWARTZ
== END 2018-12-13 12:20 | disposition home or self-care (01) | DRG 171 ==
LOC: 4E 15:16
PROVIDERS: Internal Medicine Cardiovascular Disease; Student in an Organized Health Care Education/Training Program; ADMIT Internal Medicine
PROC: 0JH606Z Insertion of Pacemaker, Dual Chamber into Chest Subcutaneous Tissue and Fascia, Open Approach (ICD-10-PCS; principal; 2018-12-12)
PROC: 02HK3JZ Insertion of Pacemaker Lead into Right Ventricle, Percutaneous Approach (ICD-10-PCS; 2018-12-12)
PROC: 02H63JZ Insertion of Pacemaker Lead into Right Atrium, Percutaneous Approach (ICD-10-PCS; 2018-12-12)
DX: I49.5 Sick sinus syndrome (principal); I49.8 Other specified cardiac arrhythmias; K21.9 Gastro-esophageal reflux disease without esophagitis; F17.200 Nicotine dependence, unspecified, uncomplicated; Z98.84 Bariatric surgery status; Z88.0 Allergy status to penicillin; E83.41 Hypermagnesemia; I51.9 Heart disease, unspecified

== ENCOUNTER → 2018-12-30 | Outpatient (CLI) | payer OTHER ==
[~2018-12-30] MED LIST changes: +CIPRO500 MG PO
--- NOTE | ~2018-12-30 | EEG ---
[place], [place] ELECTROENCEPHALOGRAM REPORT NAME: RAQUEL REDD [facility] #: [id number] UNIT #: [id number] ROOM: DOCTOR: MERCEDES GAMEZ JR,SHE DOS: This 38-year-old man on no medications, displayed the following underlying rhythms --- well organized, synchronous, 10 Hz, 30-40 microvolt alpha rhythms in both posterior regions. A 20 Hz, 10 microvolt beta rhythms were noted in both precentral regions. Hyperventilation produced no abnormalities. There was no driving to photic stimulation. There was attenuation of the posterior alpha rhythms with eye opening. The patient did fall asleep, progressing uneventfully through stages I and II of somnolence. Well-formed, bilateral sleep spindles were seen. Throughout this tracing, there were no focal abnormalities or epileptiform discharges. IMPRESSION: Normal awake and asleep EEG. SHE LONG MD CM:EEG:ELECTROENCEPHALOGRAM REPORT 1600 1609 SHE LONG MD, JR
== END | disposition home or self-care (01) ==
LOC: CP 08:47
DX: R55 Syncope and collapse (principal)

== ENCOUNTER 2019-01-13 13:01 | Emergency (ER) | payer OTHER ==
[~2019-01-13] VITALS: Ht 180.3 cm; Wt 97.1 kg
[2019-01-13 13:40] LABS: BASO % 0.4 % (0.0-1.0); EOS # 0.1 10*3/uL (0.0-0.4); EOS % 1.9 % (1.0-4.0); HEMATOCRIT 45.1 % (42.0-52.0); HEMOGLOBIN 14.6 g/dl (14.0-18.0); LYMPH # 0.9 10*3/uL (1.3-4.4); LYMPH % 19.5 % (27.0-41.0); MEAN CELL VOLUME 91.3 fl (80.0-94.0); MEAN CORPUSCULAR HGB 29.6 pg (27.0-31.0); MEAN CORPUSCULAR HGB CONC 32.4 g/dl (33.0-37.0); MEAN PLATELET VOLUME 10.5 fl (9.6-12.3); MONO # 0.5 10*3/uL (0.1-1.0); MONO % 11.1 % (3.0-9.0); NEUT # 3.2 10*3/uL (2.3-7.9); NEUT % 66.7 % (47.0-73.0); PLATELET COUNT AUTOMATED 298 10*3/uL (130-400); RED BLOOD COUNT 4.94 10*6/uL (4.50-5.90); RED CELL DISTRI WIDTH 12.6 % (0-14.5); WHITE BLOOD COUNT 4.8 10*3/uL (4.8-10.8)
[2019-01-13 13:51] LABS: ACT PARTIAL THROMBO TIME 27.5 SECONDS (20.0-32.1)
[2019-01-13 13:57] LABS: ALBUMIN 3.5 gm/dl (3.1-4.5); ALKALINE PHOSPHATASE 76 U/L (45-117); BUN 12 mg/dl (7-24); CHLORIDE 105 mmol/L (98-107); POTASSIUM 3.8 mmol/L (3.5-5.1); SGOT/AST 18 IU/L (3-35); SGPT/ALT 26 U/L (12-78); SODIUM 140 mmol/L (136-145); TOTAL PROTEIN 6.3 gm/dL (6.4-8.2)
[2019-01-13 13:58] LABS: TROPONIN I < 0.015 ng/ml (<0.045)
== END 2019-01-13 17:30 | disposition home or self-care (01) ==
LOC: ED 13:01
PROVIDERS: Emergency Medicine
DX: R55 Syncope and collapse (principal); K21.9 Gastro-esophageal reflux disease without esophagitis; J45.909 Unspecified asthma, uncomplicated; Z88.0 Allergy status to penicillin; Z79.2 Long term (current) use of antibiotics; Z95.0 Presence of cardiac pacemaker

== ENCOUNTER 2019-07-16 10:49 | Emergency (ER) | payer OTHER ==
[~2019-07-16] VITALS: Ht 180.3 cm; Wt 104.8 kg
[2019-07-16 11:08] LABS: BASO % 0.5 % (0.0-1.0); EOS # 0.1 10*3/uL (0.0-0.4); EOS % 1.8 % (1.0-4.0); HEMATOCRIT 45.6 % (42.0-52.0); MEAN CELL VOLUME 89.8 fl (80.0-94.0); MEAN CORPUSCULAR HGB 30.5 pg (27.0-31.0); MEAN PLATELET VOLUME 10.5 fl (9.6-12.3); MONO # 0.6 10*3/uL (0.1-1.0); MONO % 9.8 % (3.0-9.0); NEUT # 4.3 10*3/uL (2.3-7.9); NEUT % 71.4 % (47.0-73.0); PLATELET COUNT AUTOMATED 291 10*3/uL (130-400); RED BLOOD COUNT 5.08 10*6/uL (4.50-5.90); RED CELL DISTRI WIDTH 12.6 % (0-14.5)
[2019-07-16 11:21] LABS: ACT PARTIAL THROMBO TIME 25.8 SECONDS (20.0-32.1)
[2019-07-16 11:23] LABS: ALBUMIN 3.3 gm/dl (3.1-4.5); ALKALINE PHOSPHATASE 74 U/L (45-117); BUN 10 mg/dl (7-24); CHLORIDE 108 mmol/L (98-107); CREATININE 1.01 mg/dL (0.70-1.30); POTASSIUM 3.7 mmol/L (3.5-5.1); SGOT/AST 22 IU/L (3-35); SGPT/ALT 30 U/L (12-78); SODIUM 141 mmol/L (136-145); TOTAL PROTEIN 6.3 gm/dL (6.4-8.2)
[2019-07-16 11:26] LABS: TROPONIN I < 0.015 ng/ml (<0.045)
[2019-07-16 11:49] LABS: BILIRUBIN NEGATIVE (NEGATIVE); BLOOD NEGATIVE (NEGATIVE); CLARITY CLEAR (CLEAR); COLOR YELLOW (YELLOW); GLUCOSE NEGATIVE (NEGATIVE); KETONE NEGATIVE (NEGATIVE); LEUKO ESTERASE NEGATIVE (NEGATIVE); NITRITE NEGATIVE (NEGATIVE); SPECIFIC GRAVITY 1.005 (1.005-1.030); UROBILINOGEN 0.2 E.U./dl (0.2-1.0)
[2019-07-16 11:54] LABS: EPITHELIAL CELLS 0-2
== END 2019-07-16 12:54 | disposition home or self-care (01) ==
LOC: ED 10:49
PROVIDERS: Emergency Medicine; Internal Medicine
DX: E16.2 Hypoglycemia, unspecified (principal); J45.909 Unspecified asthma, uncomplicated; K21.9 Gastro-esophageal reflux disease without esophagitis; F41.9 Anxiety disorder, unspecified; M19.90 Unspecified osteoarthritis, unspecified site; Z88.0 Allergy status to penicillin; Z79.899 Other long term (current) drug therapy

== ENCOUNTER 2019-09-05 23:07 | Emergency (ER) | payer OTHER ==
[2019-09-05 23:35] LABS: BASO % 0.4 % (0.0-1.0); EOS % 0.3 % (1.0-4.0); HEMATOCRIT 52.4 % (42.0-52.0); LYMPH # 1.2 10*3/uL (1.3-4.4); LYMPH % 16.7 % (27.0-41.0); MEAN CELL VOLUME 87.2 fl (80.0-94.0); MEAN CORPUSCULAR HGB 30.3 pg (27.0-31.0); MEAN CORPUSCULAR HGB CONC 34.7 g/dl (33.0-37.0); MEAN PLATELET VOLUME 10.3 fl (9.6-12.3); MONO # 0.8 10*3/uL (0.1-1.0); MONO % 11.7 % (3.0-9.0); NEUT # 4.9 10*3/uL (2.3-7.9); NEUT % 70.6 % (47.0-73.0); PLATELET COUNT AUTOMATED 374 10*3/uL (130-400); RED BLOOD COUNT 6.01 10*6/uL (4.50-5.90); RED CELL DISTRI WIDTH 12.5 % (0-14.5); WHITE BLOOD COUNT 6.9 10*3/uL (4.8-10.8)
[2019-09-05 23:45] LABS: ACT PARTIAL THROMBO TIME 25.9 SECONDS (20.0-32.1); INTERNATIONAL NORM RATIO 1.1 (2.0-3.5)
[2019-09-05 23:51] LABS: ALBUMIN 4.4 gm/dl (3.1-4.5); ALKALINE PHOSPHATASE 90 U/L (45-117); BUN 7 mg/dl (7-24); CHLORIDE 108 mmol/L (98-107); CREATININE 1.18 mg/dL (0.70-1.30); POTASSIUM 3.1 mmol/L (3.5-5.1); SGOT/AST 19 IU/L (3-35); SGPT/ALT 29 U/L (12-78); SODIUM 140 mmol/L (136-145); TOTAL PROTEIN 7.6 gm/dL (6.4-8.2)
[2019-09-05 23:54] LABS: TROPONIN I < 0.015 ng/ml (<0.045)
[2019-09-06 01:02] LABS: URINE AMPHETAMINES > 1000 (1000ng/ml); URINE BARBITURATES < 200 (200ng/ml); URINE BENZODIAZEPINES < 200 (200ng/ml); URINE CANNABINOIDS (THC) < 50 (50ng/ml); URINE COCAINE < 300 (300ng/ml); URINE METHADONE < 300 (300ng/ml); URINE OPIATES < 300 (300ng/ml)
[2019-09-06 01:04] LABS: URINE PHENCYCLIDINE < 25 (25ng/ml)
== END 2019-09-06 01:49 | disposition left against medical advice (07) ==
LOC: ED 23:07
PROVIDERS: Emergency Medicine Emergency Medical Services
DX: R07.9 Chest pain, unspecified (principal); Z88.0 Allergy status to penicillin; Z79.899 Other long term (current) drug therapy

== ENCOUNTER 2019-11-17 12:53 | Emergency (ER) | payer OTHER ==
[~2019-11-17] VITALS: Ht 180.3 cm; Wt 104.3 kg
[2019-11-17 13:28] LABS: BASO % 0.7 % (0.0-1.0); EOS # 0.1 10*3/uL (0.0-0.4); EOS % 3.4 % (1.0-4.0); HEMATOCRIT 48.3 % (42.0-52.0); LYMPH % 25.1 % (27.0-41.0); MEAN CELL VOLUME 90.3 fl (80.0-94.0); MEAN CORPUSCULAR HGB 29.2 pg (27.0-31.0); MEAN CORPUSCULAR HGB CONC 32.3 g/dl (33.0-37.0); MEAN PLATELET VOLUME 9.9 fl (9.6-12.3); MONO # 0.4 10*3/uL (0.1-1.0); NEUT # 2.5 10*3/uL (2.3-7.9); NEUT % 60.6 % (47.0-73.0); PLATELET COUNT AUTOMATED 295 10*3/uL (130-400); RED BLOOD COUNT 5.35 10*6/uL (4.50-5.90); RED CELL DISTRI WIDTH 12.8 % (0-14.5); WHITE BLOOD COUNT 4.1 10*3/uL (4.8-10.8)
[2019-11-17 13:41] LABS: ACT PARTIAL THROMBO TIME 27.8 SECONDS (20.0-32.1)
[2019-11-17 13:48] LABS: ALBUMIN 3.3 gm/dl (3.1-4.5); ALKALINE PHOSPHATASE 98 U/L (45-117); BUN 11 mg/dl (7-24); CHLORIDE 112 mmol/L (98-107); CREATININE 0.93 mg/dL (0.70-1.30); POTASSIUM 3.8 mmol/L (3.5-5.1); SGOT/AST 14 IU/L (3-35); SGPT/ALT 26 U/L (12-78); SODIUM 141 mmol/L (136-145); TOTAL PROTEIN 6.1 gm/dL (6.4-8.2)
[2019-11-17 13:49] LABS: ETHYL ALCOHOL < 3.0 mg/dl (<3); TROPONIN I < 0.015 ng/ml (<0.045)
== END 2019-11-17 15:33 | disposition home or self-care (01) ==
LOC: ED 12:53
PROVIDERS: Emergency Medicine
DX: R47.81 Slurred speech (principal); R25.1 Tremor, unspecified; K21.9 Gastro-esophageal reflux disease without esophagitis; Z88.0 Allergy status to penicillin

== ENCOUNTER 2020-08-04 17:22 | Emergency (ER) | payer OTHER ==
[~2020-08-04] VITALS: Ht 180.3 cm; Wt 97.5 kg
[2020-08-04] MEDS ORDERED: CLINDAMYCIN HC300 MG PO (19:46)
[2020-08-04] MEDS ORDERED: PREDNISONE20 M1 PO (19:46)
== END 2020-08-04 20:06 | disposition home or self-care (01) ==
LOC: ED 17:22
DX: S49.91XA Unspecified injury of right shoulder and upper arm, initial encounter (principal); T50.905A Adverse effect of unspecified drugs, medicaments and biological substances, initial encounter; Z88.0 Allergy status to penicillin; Z79.899 Other long term (current) drug therapy; Z98.890 Other specified postprocedural states; F17.200 Nicotine dependence, unspecified, uncomplicated; X58.XXXA Exposure to other specified factors, initial encounter; Y93.89 Activity, other specified; Y92.89 Other specified places as the place of occurrence of the external cause; Y99.8 Other external cause status

== ENCOUNTER 2020-12-27 01:35 | Emergency (ER) | payer OTHER ==
[~2020-12-27] VITALS: Wt 97.5 kg
[~2020-12-27 01:35] MED LIST changes: +CLINDAMYCIN HC300 MG PO
[2020-12-27] MEDS ORDERED: VIBRAMYCIN100 MG PO (03:44)
== END 2020-12-27 04:01 | disposition home or self-care (01) ==
LOC: ED 01:35
DX: S51.811A Laceration without foreign body of right forearm, initial encounter (principal); K21.9 Gastro-esophageal reflux disease without esophagitis; F17.200 Nicotine dependence, unspecified, uncomplicated; Z88.0 Allergy status to penicillin; W25.XXXA Contact with sharp glass, initial encounter; Y93.89 Activity, other specified; Y92.89 Other specified places as the place of occurrence of the external cause; Y99.8 Other external cause status

== ENCOUNTER 2021-02-13 21:01 | Emergency (ER) | payer OTHER ==
[~2021-02-13] VITALS: Ht 180.3 cm; Wt 97.5 kg
[~2021-02-13 21:01] MED LIST changes: +VIBRAMYCIN100 MG PO
[2021-02-13] MEDS ORDERED: BUSPAR15 MG PO (21:07)
[2021-02-13] MEDS ORDERED: GABAPENTIN400 MG PO (21:07)
== END 2021-02-13 21:46 | disposition home or self-care (01) ==
LOC: ED 21:01
DX: R05.9 Cough, unspecified (principal); Z20.822 Contact with and (suspected) exposure to COVID-19

== ENCOUNTER 2021-09-27 09:58 | Inpatient (IN) | payer OTHER ==
[~2021-09-27] VITALS: Ht 180.3 cm; Wt 99.8 kg
[~2021-09-27 09:58] MED LIST changes: +BUSPAR15 MG PO; +GABAPENTIN400 MG PO
[2021-09-27 10:01] VITALS: BP 112/64
[2021-09-27 11:29] LABS: BASO % 0.5 % (0.0-1.0); EOS # 0.2 10*3/uL (0.0-0.4); EOS % 4.4 % (1.0-4.0); HEMATOCRIT 42.6 % (42.0-52.0); LYMPH # 0.6 10*3/uL (1.3-4.4); LYMPH % 15.2 % (27.0-41.0); MEAN CELL VOLUME 91.2 fl (80.0-94.0); MEAN CORPUSCULAR HGB 30.6 pg (27.0-31.0); MEAN CORPUSCULAR HGB CONC 33.6 g/dl (33.0-37.0); MEAN PLATELET VOLUME 10.2 fl (9.6-12.3); MONO # 0.7 10*3/uL (0.1-1.0); MONO % 16.4 % (3.0-9.0); NEUT # 2.6 10*3/uL (2.3-7.9); NEUT % 63.3 % (47.0-73.0); PLATELET COUNT AUTOMATED 247 10*3/uL (130-400); RED BLOOD COUNT 4.67 10*6/uL (4.50-5.90); RED CELL DISTRI WIDTH 13.5 % (0-14.5); WHITE BLOOD COUNT 4.1 10*3/uL (4.8-10.8)
[2021-09-27 11:45] LABS: ALKALINE PHOSPHATASE 74 U/L (45-117); BUN 8 mg/dl (7-24); CHLORIDE 111 mmol/L (98-107); CREATININE 0.98 mg/dL (0.70-1.30); POTASSIUM 3.7 mmol/L (3.5-5.1); SGOT/AST 19 IU/L (3-35); SGPT/ALT 20 U/L (12-78); SODIUM 140 mmol/L (136-145); TOTAL PROTEIN 5.6 gm/dL (6.4-8.2)
[2021-09-27 11:50] LABS: ACT PARTIAL THROMBO TIME 28.9 SECONDS (20.0-32.1)
[2021-09-27 12:30] VITALS: BP 107/65
[2021-09-27 16:00] VITALS: BP 123/54
[2021-09-27 17:31] LABS: BILIRUBIN Negative (Negative); BLOOD Negative (Negative); CLARITY Clear (Clear); COLOR Yellow (Yellow); GLUCOSE Negative (Negative); KETONE Trace (Negative); LEUKO ESTERASE Negative (Negative); NITRITE Negative (Negative); PH 5.5 (4.5-8.0); SPECIFIC GRAVITY 1.025 (1.001-1.030)
[2021-09-27 17:41] LABS: URINE AMPHETAMINES > 1000 (1000ng/ml); URINE BARBITURATES < 200 (200ng/ml); URINE BENZODIAZEPINES > 200 (200ng/ml); URINE CANNABINOIDS (THC) < 50 (50ng/ml); URINE COCAINE < 300 (300ng/ml); URINE METHADONE < 300 (300ng/ml); URINE OPIATES < 300 (300ng/ml)
[2021-09-27 17:46] LABS: BACTERIA TRACE; MUCOUS TRACE; WBC 0-2 wbc/hpf (0-5)
[2021-09-27 17:52] LABS: URINE PHENCYCLIDINE < 25 (25ng/ml)
[2021-09-27 20:00] VITALS: BP 98/61
[2021-09-28] VITALS: BP 117/67
[2021-09-28 08:00] VITALS: BP 90/46
[2021-09-28 12:00] VITALS: BP 106/57
[2021-09-28 16:00] VITALS: BP 118/61
[2021-09-28 20:00] VITALS: BP 104/57
[2021-09-29] VITALS: BP 109/67
[2021-09-29 08:00] VITALS: BP 99/60
[2021-09-29 12:00] VITALS: BP 90/65
[2021-09-29 16:00] VITALS: BP 129/69; BP 135/83
[2021-09-29 20:00] VITALS: BP 121/71
[2021-09-30] VITALS: BP 111/62
[2021-09-30 08:00] VITALS: BP 110/60
[2021-09-30 12:00] VITALS: BP 99/46
[2021-09-30 16:00] VITALS: BP 116/61
[2021-09-30 20:00] VITALS: BP 110/61
[2021-10-01] VITALS: BP 111/48
[2021-10-01 08:00] VITALS: BP 110/50
[2021-10-01 12:00] VITALS: BP 106/52
[2021-10-01 20:00] VITALS: BP 119/67
[2021-10-02] VITALS: BP 113/59
[2021-10-02 04:00] VITALS: BP 117/80
[2021-10-02 08:00] VITALS: BP 104/52
[2021-10-02] MEDS ORDERED: VITAMIN B-1100 M1 PO (08:44)
[2021-10-02] MEDS ORDERED: DICYCLOMINE HYD20 MG PO (08:44)
[2021-10-02] MEDS ORDERED: METHOCARBAMOL750 M1 PO (08:44)
[2021-10-02] MEDS ORDERED: THERA TABLET400 MCG PO (08:44)
[2021-10-02] MEDS ORDERED: NATURE'S BLEND F1 MG PO (08:44)
[2021-10-02] MEDS ORDERED: SEPTDS PO (08:44)
[2021-10-02] MEDS ORDERED: ARIPIPRAZOLE5 MG PO (08:44)
== END 2021-10-02 09:55 | disposition home or self-care (01) | DRG 775 ==
LOC: ED 09:58 → EDHOLD 11:06 → 4E 11:06
PROVIDERS: Emergency Medicine; ADMIT Internal Medicine; ATTEND Internal Medicine
DX: F10.239 Alcohol dependence with withdrawal, unspecified (principal); F17.218 Nicotine dependence, cigarettes, with other nicotine-induced disorders; F10.29 Alcohol dependence with unspecified alcohol-induced disorder; K21.9 Gastro-esophageal reflux disease without esophagitis; E83.41 Hypermagnesemia; D72.819 Decreased white blood cell count, unspecified; F32.9 Major depressive disorder, single episode, unspecified; J06.9 Acute upper respiratory infection, unspecified; Z88.0 Allergy status to penicillin; Z95.0 Presence of cardiac pacemaker; Z98.84 Bariatric surgery status; Z84.89 Family history of other specified conditions; Z71.6 Tobacco abuse counseling

== ENCOUNTER 2021-10-10 21:45 | Emergency (ER) | payer OTHER ==
[~2021-10-10] VITALS: Wt 99.8 kg
[~2021-10-10 21:45] MED LIST changes: +ARIPIPRAZOLE5 MG PO; +DICYCLOMINE HYD20 MG PO; +METHOCARBAMOL750 M1 PO; +NATURE'S BLEND F1 MG PO; +SEPTDS PO; +THERA TABLET400 MCG PO; +VITAMIN B-1100 M1 PO
[2021-10-10 22:26] LABS: BASO % 0.4 % (0.0-1.0); EOS # 0.1 10*3/uL (0.0-0.4); EOS % 1.8 % (1.0-4.0); HEMATOCRIT 40.9 % (42.0-52.0); LYMPH % 19.6 % (27.0-41.0); MEAN CELL VOLUME 90.1 fl (80.0-94.0); MEAN CORPUSCULAR HGB 29.7 pg (27.0-31.0); MEAN PLATELET VOLUME 10.1 fl (9.6-12.3); MONO # 0.7 10*3/uL (0.1-1.0); NEUT # 3.2 10*3/uL (2.3-7.9); PLATELET COUNT AUTOMATED 310 10*3/uL (130-400); RED BLOOD COUNT 4.54 10*6/uL (4.50-5.90); RED CELL DISTRI WIDTH 13.3 % (0-14.5)
[2021-10-10 22:48] LABS: ALKALINE PHOSPHATASE 83 U/L (45-117); BUN 16 mg/dl (7-24); CHLORIDE 107 mmol/L (98-107); CREATININE 1.14 mg/dL (0.70-1.30); LIPASE 228 U/L (73-393); POTASSIUM 4.5 mmol/L (3.5-5.1); SGOT/AST 45 IU/L (3-35); SGPT/ALT 66 U/L (12-78); SODIUM 138 mmol/L (136-145); TOTAL PROTEIN 6.3 gm/dL (6.4-8.2)
[2021-10-11] MEDS ORDERED: ULTRAM50 MG PO (01:09)
== END 2021-10-11 01:15 | disposition home or self-care (01) ==
LOC: ED 21:45
PROVIDERS: Emergency Medicine
DX: R10.10 Upper abdominal pain, unspecified (principal); F17.200 Nicotine dependence, unspecified, uncomplicated; Z98.890 Other specified postprocedural states; Z95.0 Presence of cardiac pacemaker; Z98.84 Bariatric surgery status; Z79.899 Other long term (current) drug therapy; Z88.0 Allergy status to penicillin

== ENCOUNTER → 2022-05-30 | Day surgery (SDC) | payer OTHER ==
[2022-05-26 14:10] VITALS: BP 116/73
[2022-05-30] VITALS (8 sets, daily range): BP systolic 97–111; BP diastolic 57–76
[~2022-05-30] VITALS: Ht 180.3 cm; Wt 105.2 kg
[~2022-05-30] MED LIST changes: +PROVENTIL HFA6.7 GM INH; +ULTRAM50 MG PO
== END | disposition home or self-care (01) ==
LOC: SDC 04-28 14:00
PROVIDERS: ATTEND Dentist General Practice
DX: K02.9 Dental caries, unspecified (principal); F41.9 Anxiety disorder, unspecified; J45.909 Unspecified asthma, uncomplicated; K21.9 Gastro-esophageal reflux disease without esophagitis; M19.90 Unspecified osteoarthritis, unspecified site

== ENCOUNTER 2023-11-09 22:14 | Emergency (ER) | payer OTHER ==
[~2023-11-09] VITALS: Ht 180.3 cm; Wt 108.9 kg
[2023-11-09] MEDS ORDERED: SODIUM CHLORIDE 0.9% 1,000 ML IV ONE (22:55)
[2023-11-09 23:07] LABS: BASO # 0.1 10*3/uL (0.0-0.1); BASO % 0.5 % (0.0-1.0); EOS # 0.1 10*3/uL (0.0-0.4); EOS % 0.7 % (1.0-4.0); HEMATOCRIT 47.2 % (42.0-52.0); LYMPH # 1.2 10*3/uL (1.3-4.4); LYMPH % 12.7 % (27.0-41.0); MEAN CELL VOLUME 88.7 fl (80.0-94.0); MEAN CORPUSCULAR HGB 29.1 pg (27.0-31.0); MEAN CORPUSCULAR HGB CONC 32.8 g/dl (33.0-37.0); MEAN PLATELET VOLUME 10.2 fl (9.6-12.3); MONO # 0.8 10*3/uL (0.1-1.0); MONO % 8.2 % (3.0-9.0); NEUT # 7.5 10*3/uL (2.3-7.9); NEUT % 77.6 % (47.0-73.0); PLATELET COUNT AUTOMATED 350 10*3/uL (130-400); RED BLOOD COUNT 5.32 10*6/uL (4.50-5.90); WHITE BLOOD COUNT 9.7 10*3/uL (4.8-10.8)
[2023-11-09 23:28] LABS: ALKALINE PHOSPHATASE 89 U/L (46-116); BUN 9 mg/dl (9-23); CHLORIDE 106 mmol/L (98-107); LIPASE 34 U/L (12-53); POTASSIUM 3.7 mmol/L (3.4-5.1); SGPT/ALT 13 U/L (5-49); TOTAL PROTEIN 6.7 gm/dL (6.0-8.0)
[2023-11-09 23:30] LABS: ETHYL ALCOHOL < 3.0 mg/dl (<3)
[2023-11-10] MEDS ORDERED: SODIUM CHLORIDE 0.9% 1,000 ML IV ONE (00:05)
[2023-11-10 00:12] LABS: BILIRUBIN 2+ (Negative); BLOOD 3+ (Negative); CLARITY Turbid (Clear); COLOR Dark Yellow (Yellow); GLUCOSE Negative (Negative); KETONE 1+ (Negative); LEUKO ESTERASE 1+ (Negative); NITRITE Negative (Negative); PH 5.5 (4.5-8.0); SPECIFIC GRAVITY >= 1.030 (1.001-1.030)
[2023-11-10 00:20] LABS: URINE AMPHETAMINES Positive (1000ng/ml); URINE BARBITURATES Negative (200ng/ml); URINE BENZODIAZEPINES Negative (200ng/ml); URINE CANNABINOIDS (THC) Negative (50ng/ml); URINE COCAINE Negative (300ng/ml); URINE METHADONE Negative (300ng/ml); URINE OPIATES Negative (300ng/ml); URINE PHENCYCLIDINE Negative (25ng/ml)
[2023-11-10] MEDS ORDERED: IOHEXOL 300 MG/ML 100 ML VIAL ONE (00:24)
[2023-11-10 00:42] LABS: RBC 41-50 rbc/hpf (0-2)
[2023-11-10] MEDS ORDERED: IOHEXOL 300 MG/ML 100 ML VIAL IV ONE (01:10)
[2023-11-10] MEDS ORDERED: Ciprofloxacin Hydrochloride 500 MG TAB PO ONE (02:00)
[2023-11-10] MEDS ORDERED: FLOMAX0.4 MG PO (02:01)
[2023-11-10] MEDS ORDERED: MELOXICAM15 MG PO (02:01)
[2023-11-10] MEDS ORDERED: CIPRO500 MG PO (02:01)
[2023-11-14] MEDS ORDERED: FLOMAX0.4 MG PO (12:43)
[2023-11-15 12:08] LABS: ORGANISM ID Final report (.)
== END 2023-11-10 02:32 | disposition home or self-care (01) ==
LOC: ED 22:14
PROVIDERS: Internal Medicine
DX: N20.0 Calculus of kidney (principal); R11.2 Nausea with vomiting, unspecified; J45.909 Unspecified asthma, uncomplicated; K21.9 Gastro-esophageal reflux disease without esophagitis; F41.9 Anxiety disorder, unspecified; M19.90 Unspecified osteoarthritis, unspecified site; F10.20 Alcohol dependence, uncomplicated; F17.200 Nicotine dependence, unspecified, uncomplicated; Z88.0 Allergy status to penicillin; Z98.890 Other specified postprocedural states

== ENCOUNTER 2024-01-12 16:56 | Emergency (ER) | payer OTHER ==
[~2024-01-12] VITALS: Ht 180.3 cm; Wt 109.8 kg
[~2024-01-12 16:56] MED LIST changes: +FLOMAX0.4 MG PO; +MELOXICAM15 MG PO
[2024-01-12] MEDS ORDERED: Acetaminophen/Oxycodone 5 MG/325 MG TABLET PO ONE (17:20)
[2024-01-12] MEDS ORDERED: PERCOCET 5-3251 EACH PO (17:43)
== END 2024-01-12 17:51 | disposition home or self-care (01) ==
LOC: ED 16:56
DX: S22.41XA Multiple fractures of ribs, right side, initial encounter for closed fracture (principal); J45.909 Unspecified asthma, uncomplicated; K21.9 Gastro-esophageal reflux disease without esophagitis; F41.9 Anxiety disorder, unspecified; M19.90 Unspecified osteoarthritis, unspecified site; F17.200 Nicotine dependence, unspecified, uncomplicated; Z88.0 Allergy status to penicillin; Z98.890 Other specified postprocedural states; W11.XXXA Fall on and from ladder, initial encounter; Y93.89 Activity, other specified; Y92.89 Other specified places as the place of occurrence of the external cause; Y99.8 Other external cause status

== ENCOUNTER → 2024-12-30 | Outpatient (CLI) | payer OTHER ==
[~2024-12-30] MED LIST changes: +PERCOCET 5-3251 EACH PO
[2024-12-30 12:22] LABS: BASO # 0.0 10*3/uL (0.0-0.1); BASO % 0.5 % (0.0-1.0); EOS # 0.1 10*3/uL (0.0-0.4); EOS % 1.2 % (1.0-4.0); MEAN CELL VOLUME 85.8 fl (80.0-94.0); MEAN CORPUSCULAR HGB 28.4 pg (27.0-31.0); MEAN PLATELET VOLUME 10.3 fl (9.6-12.3); MONO # 0.4 10*3/uL (0.1-1.0); MONO % 10.2 % (3.0-9.0); NEUT # 3.1 10*3/uL (2.3-7.9); NEUT % 71.0 % (47.0-73.0); NUCLEATED RED BLOOD CELL 0.0 % (0.0-0.0); NUCLEATED RED BLOOD CELL 0.0 10*3/uL (0.0-0.0); PLATELET COUNT AUTOMATED 262 10*3/uL (130-400); RED CELL DISTRI WIDTH 13.5 % (0-14.5)
[2024-12-30 13:28] LABS: BUN 8 mg/dl (9-23); FREE T4 1.23 ng/dl (0.89-1.76); LDL CHOLESTEROL 101 mg/dL (9-159); SGPT/ALT 19 U/L (5-49)
[2024-12-30 13:50] LABS: VITAMIN D, 25-HYDROXY 13.4 ng/mL (30-100)
== END | disposition home or self-care (01) ==
LOC: LAB 12:06
PROVIDERS: ATTEND Internal Medicine
DX: K21.9 Gastro-esophageal reflux disease without esophagitis (principal)

== ENCOUNTER → 2025-01-23 | Outpatient (CLI) | payer OTHER | END | disposition home or self-care (01) | LOC: ORTHO 01:44 | PROVIDERS: ATTEND Orthopaedic Surgery | DX: M79.602 Pain in left arm (principal) ==